=== PATIENT | male | born 1935 | race Caucasian/White ===

== ENCOUNTER 2017-03-11 08:33 | Emergency (ER) | payer OTHER ==
[~2017-03-11 08:33] MED LIST: ASPIR 8181 MG PO; CLINDAMYCIN HC300 MG PO; LAC PO; LEVAQUIN500 MG PO; LISINOPRIL2.5 MG PO; LORAZEPAM0.5 MG PO; PRAVASTATIN40 M1 PO; PROCARDIA XL90 MG PO; PROSCAR5 MG PO; ZOLOFT50 MG PO
[2017-03-11 11:25] VITALS: BP 139/81
== END 2017-03-11 11:25 | disposition home or self-care (01) ==
LOC: ED 08:33
DX: K59.00 Constipation, unspecified (principal); E78.00 Pure hypercholesterolemia, unspecified

== ENCOUNTER 2017-03-21 00:58 | Inpatient (IN) | payer OTHER ==
[~2017-03-21] VITALS: Ht 167.6 cm; Wt 88.5 kg
--- NOTE | 2017-03-21 01:42 | NUR ---
PT PRESENTS TO THE ER TODAY FOR CHEST PAIN AND FOR POLYURIA. PT STATES 2HRS AGO HE HAD A SHARP PAIN IS HIS CHEST BUT WENT AWAY. PT DENIES ANY CHEST PAIN NOW. PT DENIES ANY SOB OR DIFFICULTY BREATHING. PT LUNGS CLEAR BILATERALY. RESPIRATIONS EVEN AND UNLABORED. PT DOES HAVE 2+ PITTING EDEMA IN BILATERAL EXTREMITIES. PEDAL PULSES STRONG. PT STATES HE HAS BEEN HAVING TO URINATE FREQUENTLY AND THAT BOTHERS HIM. PT DENIES ANY OTHER SYMPTOMS. VITAL SIGNS STABLE. NO ACUTE DISTTRESS NOTED.
--- NOTE | 2017-03-21 01:50 | NUR ---
RADIOLOGY AT BEDSIDE FOR CHEST X-RAY
--- NOTE | 2017-03-21 02:16 | NUR ---
PT APPEARS TO BE RESTING COMFORTABLY. RESPIRATIONS EVEN AND UNLABORED. VITAL SIGNS STABLE. NO ACUTE DISTRESS NOTED.
[2017-03-21 02:20] LABS: CALCIUM 9.2 mg/dL (8.5-10.1); CARBON DIOXIDE 27.9 mmol/L (21-32); CHLORIDE SERUM 105 mmol/L (98-107); CREATININE SERUM 1.1 mg/dL (0.7-1.3); GLUCOSE SERUM 82 mg/dL (74-106); POTASSIUM SERUM 4.2 mmol/L (3.5-5.1); SODIUM SERUM 141 mmol/L (136-145)
[2017-03-21 02:24] LABS: ALKALINE PHOSPHATASE 44 U/L (46-116); ALT/SGPT 15 U/L (16-63); AST/SGOT 16 U/L (15-37); BILIRUBIN TOTAL 0.78 mg/dL (0.20-1.00); LIPASE 144 IU/L (73-393); TOTAL PROTEIN, SERUM 6.8 g/dL (6.4-8.2)
[2017-03-21 02:25] LABS: BASOPHIL % 0.6 % (0-2); PLATELET COUNT 275 x10^3mcL (130-400)
[2017-03-21 02:26] LABS: RED CELL DISTRIBUTION WIDTH 15.1 % (11.5-14.5)
[2017-03-21 02:28] LABS: ALBUMIN 3.3 g/dL (3.4-5.0)
[2017-03-21 02:31] LABS: microscopic required? NO
--- NOTE | 2017-03-21 02:32 | NUR ---
LAB AT BEDSIDE FOR BLOOD DRAW.
[2017-03-21 02:53] LABS: urine erythrocyte NEGATIVE (NEGATIVE)
--- NOTE | 2017-03-21 03:13 | NUR ---
PATIENT APPEARS TO BE RESTING COMFORTABLY. RESPIRATIONS EVEN AND UNLABORED. VITAL SIGNS STABLE. NO ACUTE DISTRESS NOTED. PT APPEARS TO BE USING CHEWING TOBACO AND HAS BEEN TOLD TO STOP. [employer] [place] AND DR. SHABAZZ AWARE.
--- NOTE | 2017-03-21 03:55 | NUR ---
GAVE REPORT TO PRASANTH ON MED/TELE
[2017-03-21] MEDS ORDERED: FUROSEMIDE40 MG PO (04:26)
--- NOTE | 2017-03-21 04:35 | NUR ---
PT ARRIVED FROM ED VIA [facility]ERNEY ACCOMPANIED BY NURSE. PT A/O X4. TELE #17, NSR AT 74 WITH BBB, PT DENIES CHEST PAIN AT THIS TIME. PULSES PALPABLE, TRACE EDEMA TO BLE. LUNG SOUNDS CTA, BREATHING FREELY ON RA, DENIES SOB. NO RESP DISTRESS OBSERVED. ABD SOFT AND NONDISTENDED, BOWEL TONES ACTIVE, DENIES N/V. PT VOIDS ADEQUATELY, BRP. PT DENIES PAIN UPON URINATION, BUT ADMITS TO URINARY FREQUENCY. PT STATES HE "IS ON A WATER PILL." PT IS AMBULATORY WITH STEADY GAIT. SKIN IS WNL. DENIES PAIN AT THIS TIME. IV TO RAC IS PATENT AND INTACT. ORIENTED PT TO ROOM, SURROUNDINGS, AND CALL LIGHT. BED IN LOWEST SETTING, SIDE RAILS UP X2, CALL LIGHT WITHIN REACH. WILL CONTINUE TO MONITOR.
[2017-03-21 04:37] LABS: PHOSPHOROUS 3.2 mg/dL (2.5-4.9)
[2017-03-21 04:38] LABS: CHOLESTEROL/HDL RATIO 3.6
[2017-03-21 04:45] LABS: T3 TOTAL 1.09 ng/mL
[2017-03-21 04:47] LABS: FREE T4 0.93 ng/dL (0.76-1.46); FREE THYROXINE INDEX 2.1 ug/dL (1.4-4.5); T4(THYROXINE) 5.8 ug/dL (4.7-13.3)
[2017-03-21 05:03] VITALS: BP 125/69
[2017-03-21 05:39] VITALS: BP 125/69
--- NOTE | 2017-03-21 06:40 | NUR ---
PT RESTING IN BED. NO RESP DISTRESS OBSERVED. PT DENIES CHEST PAIN AT THIS TIME. IVF INFUSING WELL TO RAC. CALL LIGHT WITHIN REACH. WILL ENDORSE CARE TO AM NURSE.
--- NOTE | 2017-03-21 08:00 | NUR ---
RECEIVED PATIENT ALERT AND ORIETNED TIMES FOUR. PATIENT IS A LITTLE ANXIOUS AND UNSURE OF HIS TAKING HIS MEDICATION AND DANIELLE WAS ADVISED OF THE DOSING AND THE MEDICATION WHICH SHE TAKES AT HOME. HE HAS CLEAR BREATH SOUNDS AND BOWEL SOUNDS ACTIVE. ABDOMEN IS DISTENDED AND MODERATELY FIRM. PAITENT HAS TRACE EDEMA NOTED TO THE LOWER EXTREMITIES. PATIENT HAS BEEN AMBULATORY AND TOLERATED DIET ORDERED. HE DENIES CHEST PAIN AT THIS TIME. VITALS ARE AT 97.7, 69, 18, 125/69, 97% ON ROOM AIR. PATIENT HAS SOME BASILAR ATELECTASIS AND MILD CARDIAC PULMONARY CONGESTION. NO COUGH NOTED AND LABS ARE NOTED CHOLESEROL AT 206, LDL AT 132, ALT AT 15, ALK PHOS AT 44, AND BNP AT 259.13. WAYNE AHS NEGATIVE TORPONIN AT THIS TIME. PATIENT ALTHOUGH ANXIOUS WAS COOPERATIVE AND REASSURE WITH THE PLAN OF CARE DISCUSS. PATIENT CALM AND IS RESTING AT THIS TIME. NO RESIRATORY DISTRESS OR CHEST PAIN NOTED.
--- NOTE | 2017-03-21 08:10 | NUR ---
SEEN BY THE INTERNS AND THE RESIDENT AND PLAN OF CARE DISCUSSED. PATIENT IS TO STAY TODAY FOR MORE TESTING AND OBSERVATION. PATIENT IS AGREEABLE TO THIS. WILL CONTINUE TO MONITOR.
[2017-03-21 10:07] VITALS: BP 120/69
[2017-03-21 11:06] LABS: CARBON DIOXIDE 28.1 mmol/L (21-32); CHLORIDE SERUM 107 mmol/L (98-107); POTASSIUM SERUM 4.5 mmol/L (3.5-5.1); SODIUM SERUM 142 mmol/L (136-145)
[2017-03-21 11:07] LABS: CALCIUM 8.7 mg/dL (8.5-10.1); GLUCOSE SERUM 91 mg/dL (74-106)
--- NOTE | 2017-03-21 11:08 | NUR ---
DISCUSSED PLAN OF CARE WITH SON AT BEDSIDE. PER THE PATIENT REQUEST. THERE IS PER THE PATIENTS SON MORE MEDICATION AND HE WANTS STAFF TO SEE HIS LIST AND OFFERED TO GET A LIST FROM THE DOCTORS OFFICE. OFFERED TO ALL THE PHARMACY AND WILL RETREAVE AND GO OVER THE MEDICATIONS WITH THE CATARACT LENS GENERATOR IF THEY ARE NOT ALREADY LISTED. SON GAVE HIS CELL NUMBER AND PLACED IT IN THE CART OF [phone] IF HIS IS NEEDED TO BE REACHED.
[2017-03-21 12:51] LABS: BASOPHIL % 0.4 % (0-2); PLATELET COUNT 249 x10^3mcL (130-400)
[2017-03-21 12:57] LABS: RED CELL DISTRIBUTION WIDTH 14.9 % (11.5-14.5)
--- NOTE | 2017-03-21 13:20 | NUR ---
SPOKE WITH THE FAMILY ON THE PHONE FROM [place] AND REFERED TO THE SON WHO WAS JUST AT THE BEDSIDE FOR MORE DETAILED INFORMATION. FAMILY WANTS THE PATIENT TO HAVE A SLEEP STUDY AND WILL ATTEMPT TO ASK DR GRAY IF CAN BE ARRANGED. THE FAMILY FEELS THOUGH HE MAY NO BE COMPLIANT.
[2017-03-21 14:10] VITALS: BP 115/74
[2017-03-21 17:16] VITALS: BP 112/66
--- NOTE | 2017-03-21 18:02 | NUR ---
SON ARRIVED BACK AND THE PATIETN HAS NOT BEEN SEEN BY THE [employer] ABATEMENT WORKER YET ADN WILL RELAY REQUEST BY [employer] TO HAVE A SLEEP STUDY. DID TELL THE FAMILY THAT THE STUDY WOULD NEED TO BE ON AN OUTPATIENT BASIS IT IS NOT PREFORMED AT [place] AND THIS IS IF THE PULMONARY DOCTOR FEELS HE HAS APNEA AND IF IS IS INEDICATED. RENNYN HAS BEEN ON AND OFF SLEEPING AND NO FURTHER CHEST PAIN NOTED. THE PATIETN HAD APPARENTLY WOKE UP WITH CHEST PAIN AND IT QUICKLY DISAPATED AND NO FURTHER CHEST PAIN AT THIS TIME.
--- NOTE | 2017-03-21 19:22 | NUR ---
PT RECIEVED AAO REG RESP NO SOB IV INFUSING WELL WITH THE SITE PATENT AND INTACT,KEPT CLEAN AND DRY TO TOUCH,PT ON TELE MONITOR AND IN NSR NO ECTOPY OR CHEST PAIN AT THIS TIME,BED IN THE LOW POSITION AND LOCKED AND WILL CONTINUE TO MONITOR,IV INFUSING WELL WITH THE SITE PATENT AND INTACT,CALL LIGHT EASY REACHED AND WILL CONTINUE TO MONITOR.
[2017-03-21 20:46] VITALS: BP 95/53
[2017-03-22 05:14] VITALS: BP 99/48
--- NOTE | 2017-03-22 06:35 | NUR ---
PT HAD A RESTING NIGHT WILL CONTINUE TO MONITOR
--- NOTE | 2017-03-22 07:10 | NUR ---
RECEIVED PATIENT RESTING IN BED COMFORTABLY A/O X4, CLEAR SPEECH, NO NEURO DEFICITS NOTED. TELE # [address], DENIES CHEST PAIN. BREATHING EVEN UNLABBORED ON RA, DENIES SOB, NO DISTRESS NOTED. SKIN IS WARM CDI WITH IV TO RAC INTACT INFUSING NS AT 50 ML/HR FREE FROM REDNESS AND INFILTRATION. PATIENT IS CALM WITH CARE. INSTRUCTED TO CALL FOR ASSISTANCE IF NEEDED. CALL LIGHT WITHIN REACH. BED IN LOW POSITION. WILL CONTINUE TO MONITOR.
--- NOTE | 2017-03-22 09:00 | NUR ---
ROUNDS MADE- DR. EDWARDS, RESIDENT TEAM, CHARGE NURSE AND PRIMARY NURSE AT BEDSIDE. POC REVIEWED WITH PATIENT AND HIS SON WHO IS AT BEDSIDE- CARDIAC WORK UP CAME BACK NEGATIVE. PATIENT STABLE FOR DISCHARGE. PATIENT AND SON C/O PATIENT CAME IN DUE TO NOT HAVING A BM FOR 4 DAYS, PATIENT WILL BE GIVEN MEDICATION TO HELP HAVE A BM AND MAY BE DISCHARGED HOME AFTER HE HAS A BM. ALL QUESTIONS AND CONCERNS ADDRESSED. WILL MONITOR.
[2017-03-22 11:56] VITALS: BP 127/70
[2017-03-22] MEDS ORDERED: AMBIEN5 MG PO (12:13)
--- NOTE | 2017-03-22 12:25 | NUR ---
AT 1215: DR. RODRIGUEZ AT BEDSIDE TO SPEAK WITH PATIENT AND FAMILY (SON AND GRANDDAUGHTER) REGARDING DISCHARGE INSTRUCTIONS. PATIENT TO BE DISCHARGE HOME PER MD ORDERS, PATIENT STABLE FOR DISCHARGE AND HAD LARGE BM AROUND 1145. DISCHARGE INSTRUCTIONS, PRESCRIPTION, BELONGINGS LIST AND EDUCATION GIVEN TO PATIENT AND FAMILY. ALL QUESTIONS AND CONCERNS ADDRESSED. IV TO RAC REMOVED, CATH INTACT. ID BANDS REMOVED, TELE MONITOR REMOVED. PATIENT ASSISTED DOWN TO LOBBY VIA WHEELCHAIR ACCOMPANIED BY STAFF AND FAMILY. ALL PERSONAL BELONGINGS SENT HOME WITH PATIENT.
== END 2017-03-22 12:25 | disposition home or self-care (01) | DRG 392 ==
LOC: ED 00:58 → DU 03:34
PROVIDERS: Emergency Medicine; ADMIT Family Medicine Sports Medicine
DX: K21.9 Gastro-esophageal reflux disease without esophagitis (principal); I10 Essential (primary) hypertension; N40.0 Benign prostatic hyperplasia without lower urinary tract symptoms; Z53.29 Procedure and treatment not carried out because of patient's decision for other reasons; K59.00 Constipation, unspecified; E78.5 Hyperlipidemia, unspecified
CPT/HCPCS: 83880; 84439; J7030

== ENCOUNTER 2017-03-27 13:42 | Emergency (ER) | payer OTHER ==
[~2017-03-27 13:42] MED LIST changes: +AMBIEN5 MG PO; +FUROSEMIDE40 MG PO
[2017-03-27 16:55] LABS: BASOPHIL % 0.5 % (0-2); PLATELET COUNT 275 x10^3mcL (130-400)
[2017-03-27 17:09] LABS: CALCIUM 8.8 mg/dL (8.5-10.1); CARBON DIOXIDE 25.6 mmol/L (21-32); CHLORIDE SERUM 105 mmol/L (98-107); GLUCOSE SERUM 113 mg/dL (74-106); POTASSIUM SERUM 3.3 mmol/L (3.5-5.1); SODIUM SERUM 138 mmol/L (136-145)
[2017-03-27 17:14] LABS: ALBUMIN 3.4 g/dL (3.4-5.0); ALKALINE PHOSPHATASE 51 U/L (46-116); ALT/SGPT 19 U/L (16-63); AST/SGOT 15 U/L (15-37); BILIRUBIN TOTAL 0.7 mg/dL (0.20-1.00); TOTAL PROTEIN, SERUM 6.9 g/dL (6.4-8.2)
[2017-03-27 20:06] VITALS: BP 118/68
== END 2017-03-27 19:45 | disposition home or self-care (01) ==
LOC: ED 13:42
PROVIDERS: Emergency Medicine
DX: R56.9 Unspecified convulsions (principal); K59.00 Constipation, unspecified; I10 Essential (primary) hypertension; E78.00 Pure hypercholesterolemia, unspecified
CPT/HCPCS: 36415; Q0092